=== PATIENT | female | born 1955 | race Caucasian/White ===

== ENCOUNTER 2023-03-16 15:03 | Emergency (ER) | payer MEDICARE ==
[2023-03-16] MEDS ORDERED: Acetaminophen-Codeine 300-30mg TAB PO STA (16:11)
[2023-03-16] MEDS ORDERED: IBUPROFEN 600 MG TAB PO STA (16:11)
--- NOTE | 2023-03-16 16:12 | ED ---
Fall HPI - General Chief Complaint: Fall Stated Complaint: fall arm shoulder pain Time Seen by Provider: 03/16/23 15:39 Source: patient, RN notes reviewed, old records reviewed Mode of arrival: ambulatory - History of Present Illness Initial Comments: This is a 67-year-old female to the emergency department today for evaluation. Patient presents today for evaluation regards to fall fall with severe left shoulder pain left elbow pain left arm pain. No other injury noted from the fall fall was mechanical in nature tripping down a set of stairs old going up the stairs. 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 ROS Other: All systems not noted in ROS Statement are negative. Past Medical History Past Medical History: Cancer, CVA/TIA, Hyperlipidemia, Hypertension Additional Past Medical History / Comment(s): tremors Past Surgical History: Appendectomy, Cholecystectomy, Hysterectomy, Orthopedic Surgery Past Psychological History: Anxiety General Exam Limitations: no limitations General appearance: alert, in no apparent distress, anxious Head exam: Present: atraumatic, normocephalic, normal inspection Eye exam: Present: normal appearance, PERRL, EOMI. Absent: scleral icterus, conjunctival injection, periorbital swelling ENT exam: Present: normal exam, mucous membranes moist Neck exam: Present: normal inspection. Absent: tenderness, meningismus, lymphadenopathy Respiratory exam: Present: normal lung sounds bilaterally. Absent: respiratory distress, wheezes, rales, rhonchi, stridor Cardiovascular Exam: Present: regular rate, normal rhythm, normal heart sounds. Absent: systolic murmur, diastolic murmur, rubs, gallop, clicks GI/Abdominal exam: Present: soft, normal bowel sounds. Absent: distended, tenderness, guarding, rebound, rigid Extremities exam: Present: tenderness (Left shoulder left elbow), normal capillary refill. Absent: full ROM, pedal edema, joint swelling, calf tenderness Back exam: Present: normal inspection Neurological exam: Present: alert, oriented X3, CN II-XII intact Psychiatric exam: Present: normal affect, normal mood Skin exam: Present: warm, dry, intact, normal color. Absent: rash Course Vital Signs 03/16/23 03/16/23 03/16/23 15:09 16:30 18:50 Temperature 97.7 F 98.2 F 98.4 F Pulse Rate 100 89 88 Respiratory 20 18 18 Rate Blood Pressure 123/84 125/74 127/78 O2 Sat by Pulse 98 98 98 Oximetry - Reevaluation(s) Reevaluation #1: medical record is reviewed Reevaluation #2: patient symptoms are improved Reevaluation #3: patient informed of results and questions answered Reevaluation #4: Was pt. sent in by a medical professional or institution (, PA, DIFFERENTIAL REPAIRER, urgent care, hospital, or [facility]...) When possible be specific @ -no Did you speak to anyone other than the patient for history (EMS, parent, family, police, friend...)? What history was obtained from this source @ -no Did you review nursing and triage notes (agree or disagree)? Why? @ -agree Are old charts reviewed (outside hosp., previous admission, EMS record, old EKG, old radiological studies, urgent care reports/EKG's, [facility] records)? Report findings @ -yes Differential Diagnosis (chest pain, altered mental status, abdominal pain women, abdominal pain men, vaginal bleeding, weakness, fever, dyspnea, syncope, headache, dizziness, GI bleed, back pain, seizure, CVA, palpatations, mental health, musculoskeletal)? @ -prior EKG interpreted by me (3pts min.). @ -no X-rays interpreted by me (1pt min.). @ -yes CT interpreted by me (1pt min.). @ -no U/S interpreted by me (1pt. min.). @ -no What testing was considered but not performed or refused? (CT, X-rays, U/S, labs)? Why? @ -none What meds were considered but not given or refused? Why? @ -none Did you discuss the management of the patient with other professionals (professionals i.e. , PA, DIFFERENTIAL REPAIRER, lab, RT, psych nurse, social service manager, waterproof material folder, teacher, family preservation officer, case managers)? Give summary @ -no Was smoking cessation discussed for >3mins.? @ -no Was critical care preformed (if so, how long)? @ -no Were there social determinants of health that impacted care today? How? (Homelessness, low income, unemployed, alcoholism, drug addiction, transportation, low edu. Level, literacy, decrease access to med. care, custodial, rehab)? @ -none Was there de-escalation of care discussed even if they declined (Discuss DNR or withdrawal of care, Hospice)? DNR status @ -no What co-morbidities impacted this encounter? (DM, HTN, Smoking, COPD, CAD, Cancer, CVA, ARF, Chemo, Hep., AIDS, mental health diagnosis, sleep apnea, morbid obesity)? @ -none Was patient admitted / discharged? Hospital course, mention meds given and route, prescriptions, significant lab abnormalities, going to OR and other pertinent info. @ - 67 female of left shoulder left humerus pain after fall. No fractures not ed here in the emergency 5. Patient can be discharged home Discgarged Undiagnosed new problem with uncertain prognosis? @ -no Drug Therapy requiring intensive monitoring for toxicity (Heparin, Nitro, Insulin, Cardizem)? @ -no Were any procedures done? @ -no Diagnosis/symptom? @ -Fall, Left Shoulder Pain Acute, or Chronic, or Acute on Chronic? @ -Acute Uncomplicated (without systemic symptoms) or Complicated (systemic symptoms)? @ -Complicated Side effects of treatment? @ -no Exacerbation, Progression, or Severe Exacerbation? @ -exacerbation Poses a threat to life or bodily function? How? (Chest pain, [place], [place], pneumonia, PE, COPD, DKA, ARF, appy, cholecystitis, CVA, Diverticulitis, Homicidal, Suicidal, threat to staff... and all critical care pts) @ -yes Medical Decision Making - Medical Decision Making 67 female of left shoulder left humerus pain after fall. No fractures noted here in the emergency 5. Patient can be discharged home - Radiology Data Radiology results: report reviewed (XR chest pain shoulder and humerus is negative for traumatic injury), image reviewed Disposition Clinical Impression: Fall, Left shoulder pain, Pain of left humerus Disposition: HOME SELF-CARE Condition: Good Instructions (If sedation given, give patient instructions): Arm Fracture in Adults (ED), Fall Prevention for Older Adults (ED), Shoulder Pain (ED) Is patient prescribed a controlled substance at d/c from ED?: No Referrals: None,Stated [REFERRING] - 1-2 days Time of Disposition: 18:05
--- NOTE | 2023-03-16 16:52 | XR ---
EXAMINATION TYPE: XR chest 1V, XR shoulder complete 2 views LT DATE OF EXAM: 03/16/2023 COMPARISON: NONE HISTORY: 67-year-old female with pain after fall FINDINGS: CHEST: Heart normal size. Aorta and pulmonary vasculature within normal limits. Mild hyperinflation. No cons olidation or pleural effusion. Left shoulder: Very limited 2 views. There may be some soft tissue swelling about the shoulder. On the AP internal r otation view, possible subtle irregularity of the posterior cortex of the humeral head. The lateral v iew is very limited due to. It is not a conventional scapular Y view. AC joint appears intact. IMPRESSION: 1. Chest: Underlying COPD. No acute pulmonary process seen. 2. Left shoulder: The provided views are markedly limited. The lateral view does not add much useful information. The AP internal rotation view may have slight cortical irregularity along the posterior margin of the humeral head. Unable to exclude a nondisplaced fracture based on this view.
--- NOTE | 2023-03-16 18:00 | XR ---
EXAMINATION TYPE: XR humerus LT DATE OF EXAM: 03/16/2023 COMPARISON: NONE HISTORY: 67-year-old female with fall and pain TECHNIQUE: 2 views FINDINGS: Subtle irregularity posterior cortex of the humeral head on the lateral view. Suboptimal positioning on the lateral view of the elbow for adequate assessment of elbow joint effusion. No displaced fractu re seen. IMPRESSION: No displaced fractures seen. Similar irregularity along the posterior cortex of the humeral head. Sub optimal positioning of the elbow on the lateral view for adequate assessment of elbow joint effusion.
[2023-03-16 19:05] VITALS: BP 127/78; PULSE 88; RESP 18; TEMP 98.4
== END 2023-03-16 18:51 | disposition home or self-care (01) ==
LOC: EC 15:03
DX: M79.602 Pain in left arm (principal); J44.9 Chronic obstructive pulmonary disease, unspecified; I10 Essential (primary) hypertension; Z86.59 Personal history of other mental and behavioral disorders; Z88.2 Allergy status to sulfonamides; Z88.0 Allergy status to penicillin; Z88.1 Allergy status to other antibiotic agents; W01.0XXA Fall on same level from slipping, tripping and stumbling without subsequent striking against object, initial encounter; Y92.009 Unspecified place in unspecified non-institutional (private) residence as the place of occurrence of the external cause
CPT/HCPCS: 71045; 99284